=== PATIENT | male | born 1945 ===

== ENCOUNTER 2020-03-15 08:12 | Outpatient (CLI) | payer OTHER ==
[~2020-03-15 08:12] MED LIST: AMOX1TAB5 PO; DICY10CA PO; POLY119PG PO; SURFAK240 M1 PO; ULTRACET PO
== END 2020-03-15 08:18 | disposition home or self-care (01) ==
LOC: RX STUDY 08:12
PROVIDERS: ATTEND Internal Medicine Gastroenterology
DX: R13.0 Aphagia (principal)